=== PATIENT | male | born 1990 | race Caucasian/White ===

== ENCOUNTER 2017-01-16 02:37 | Emergency (ER) | payer SELFPAY ==
[~2017-01-16] VITALS: Ht 167.6 cm; Wt 70.0 kg
[2017-01-16] MEDS ORDERED: SODIUM CHLOR 0.9% 1000 ML INJ 1,000 ML IV ONE ×2 (02:44→02:45)
[2017-01-16] MEDS ORDERED: PROCHLORPERAZINE INJ 10 MG/2 ML VIAL IVP ONE (02:45)
--- NOTE | 2017-01-16 02:48 | PD ---
HPI Chief Complaint: EtOH Intox Time Seen by Provider: 02:44 Travel History International Travel<30 days: No Contact w/Intl Traveler<30days: No History of Present Illness HPI 26 yo M arrives by ems 2/2 etoh intox. ems reports vomiting. pt with normal vital signs on scene and normal bgl. EMS reports GCS of 14. in ER pt denies injury/drug abuse. PFSH Past Medical History Medical History: Denies Significant Hx Social History Alcohol Use: Yes Tobacco Use: No Allergies-Medications (Allergen,Severity, Reaction): Coded Allergies: No Known Allergies (Unverified , 01/16/17) Reported Meds & Prescriptions Reported Meds & Active Scripts Active Active Prescriptions or Reported Medications Unobtainable Review of Systems ROS Limitations: Intoxication Physical Exam Narrative GENERAL: 26 yo M, WNWD, etoh on breath, emesis on face and shirt SKIN: Warm and dry. HEAD: Atraumatic. Normocephalic. EYES: Pupils equal and round. No scleral icterus. No injection or drainage. ENT: No nasal bleeding or discharge. Mucous membranes pink and moist. NECK: Trachea midline. No JVD. CARDIOVASCULAR: Regular rate and rhythm. RESPIRATORY: No accessory muscle use. Clear to auscultation. Breath sounds equal bilaterally. GASTROINTESTINAL: Abdomen soft, non-tender, nondistended. Hepatic and splenic margins not palpable. MUSCULOSKELETAL: Extremities without clubbing, cyanosis, or edema. No obvious deformities. NEUROLOGICAL: Moving all extremities. CN symmetric. EtOH on breath. Slurring of speech c/w etoh intoxication. PSYCHIATRIC: EtOH intoxication. Cooperative. Data Data Last Documented VS Vital Signs Date Time Temp Pulse Resp B/P Pulse Ox O2 Delivery O2 Flow Rate FiO2 01/16/17 08:15 16 99 Room Air 01/16/17 08:15 78 01/16/17 08:15 97.8 100/72 VS reviewed Orders Ecg Monitoring (01/16/17 02:44) Iv Access Insert/Monitor (01/16/17 02:44) Oximetry (01/16/17 02:44) Sodium Chloride 0.9% Flush (Ns Flush) (01/16/17 02:45) Prochlorperazine Inj (Compazine Inj) (01/16/17 02:45) Sodium Chlor 0.9% 1000 Ml Inj (Ns 1000 M (01/16/17 02:44) Sodium Chlor 0.9% 1000 Ml Inj (Ns 1000 M (01/16/17 02:45) Alcohol (Ethanol) (01/16/17 02:48) Basic Metabolic Panel (Bmp) (01/16/17 02:48) Complete Blood Count With Diff (01/16/17 02:48) Labs Laboratory Tests Test 01/16/17 03:30 White Blood Count 7.7 TH/MM3 Red Blood Count 5.74 MIL/MM3 Hemoglobin 16.5 GM/DL Hematocrit 48.9 % Mean Corpuscular Volume 85.1 FL Mean Corpuscular Hemoglobin 28.7 PG Mean Corpuscular Hemoglobin 33.7 % Concent Red Cell Distribution Width 12.8 % Platelet Count 212 TH/MM3 Mean Platelet Volume 8.0 FL Neutrophils (%) (Auto) 67.4 % Lymphocytes (%) (Auto) 27.7 % Monocytes (%) (Auto) 3.4 % Eosinophils (%) (Auto) 1.0 % Basophils (%) (Auto) 0.5 % Neutrophils # (Auto) 5.2 TH/MM3 Lymphocytes # (Auto) 2.1 TH/MM3 Monocytes # (Auto) 0.3 TH/MM3 Eosinophils # (Auto) 0.1 TH/MM3 Basophils # (Auto) 0.0 TH/MM3 CBC Comment DIFF FINAL Differential Comment Sodium Level 139 MEQ/L Potassium Level 3.9 MEQ/L Chloride Level 104 MEQ/L Carbon Dioxide Level 25.8 MEQ/L Anion Gap 9 MEQ/L Blood Urea Nitrogen 11 MG/DL Creatinine 0.90 MG/DL Estimat Glomerular Filtration 103 ML/MIN Rate Random Glucose 117 MG/DL Calcium Level 8.6 MG/DL Ethyl Alcohol Level 259 MG/DL [facility] Medical Decision Making Medical Screen Exam Complete: Yes Emergency Medical Condition: Yes Medical Record Reviewed: Yes Differential Diagnosis Etoh intox, psa, electrolyte imbalance Narrative Course CBC & BMP Diagram 01/16/17 03:30 EtOH 259 Pt to be observed until ambulatory, normal speech and has an adult critical care nurse practitioner for a ride home. Diagnosis Primary Impression: Alcohol intoxication Qualified Code: F10.929 - Alcohol intoxication, with unspecified complication Additional Impression: Vomiting Qualified Code: R11.10 - Vomiting, intractability of vomiting not specified, presence of nausea not specified, unspecified vomiting type Referrals: Primary Care Physician 2 days Additional Instructions: You have a choice when it comes to health care, and we are glad that you chose [facility]. Hopefully, we have met your expectations on today's visit. You are welcome to return to [facility] at any time, as we are committed to meeting the health care needs of our community. Med/Other Pt SpecificInfo: No Change to Meds Scripts Unable to Obtain Active Prescriptions or Reported Meds Disposition: 01 DISCHARGE HOME Condition: Ladarius Ibrahim MD January 16, 2017 02:48
[2017-01-16 02:58] VITALS: BP 103/65; PULSE 80; RESP 18; TEMP 97.4; O2SAT 92
[2017-01-16 03:19] VITALS: O2SAT 96
[2017-01-16] MEDS: SODIUM CHLORIDE 0.9% FLUSH 10 ML FLUSH IVF PRN ×2 (03:19→07:00)
[2017-01-16 03:40] LABS: AUTOMATED NEUTROPHIL # 5.2 TH/MM3 (1.8-7.7); BASOPHIL % 0.5 % (0.0-2.0); EOSINOPHIL # 0.1 TH/MM3 (0-0.4); HEMATOCRIT 48.9 % (39.0-51.0); HEMO FLAGS DIFF FINAL; LYMPH % 27.7 % (9.0-44.0); LYMPHOCYTE # 2.1 TH/MM3 (1.0-4.8); MEAN CELL VOLUME 85.1 FL (80.0-100.0); MEAN CORPUSCULAR HEMOGLOBIN 28.7 PG (27.0-34.0); MEAN CORPUSCULAR HGB CONC 33.7 % (32.0-36.0); MONO % 3.4 % (0.0-8.0); NEUT % 67.4 % (16.0-70.0); PLATELET COUNT 212 TH/MM3 (150-450); RED BLOOD COUNT 5.74 MIL/MM3 (4.50-5.90); RED CELL DISTRIBUTION WIDTH 12.8 % (11.6-17.2); WHITE BLOOD COUNT 7.7 TH/MM3 (4.0-11.0)
[2017-01-16 03:54] LABS: BICARBONATE 25.8 MEQ/L (21.0-32.0); POTASSIUM 3.9 MEQ/L (3.5-5.1)
[2017-01-16 08:15] VITALS: BP 100/72; PULSE 78; RESP 16; TEMP 97.8; O2SAT 99
== END 2017-01-16 08:15 | disposition home or self-care (01) ==
LOC: NEPE 02:37
DX: F10.929 Alcohol use, unspecified with intoxication, unspecified (principal); R11.10 Vomiting, unspecified
CPT/HCPCS: 80048; 80307; 85025; 96361; 96374; 99284; J0780; J7030